=== PATIENT | female | born 1945 | race African-American/Black ===

== ENCOUNTER 2021-12-12 17:17 | Emergency (ER) | payer MEDICARE ==
[~2021-12-12] VITALS: Ht 177.8 cm; Wt 71.0 kg
[~2021-12-12 17:17] MED LIST: AMLO10TA80 PO; GLIP5TAB12 PO; LEVVL SUBCUT; Levothyroxine Sodium PO; Metoprolol Tartrate PO
[2021-12-12 17:25] VITALS: BP 102/72
== END 2021-12-12 18:25 | disposition left against medical advice (07) ==
LOC: ER 17:17
DX: Z53.21 Procedure and treatment not carried out due to patient leaving prior to being seen by health care provider (principal)
CPT/HCPCS: 93005